=== PATIENT | male | born 1970 | race Hispanic/Latino ===

== ENCOUNTER 2018-01-15 11:21 | Emergency (ER) | payer OTHER ==
[2018-01-15 12:33] LABS: Basophils % (Auto) 0.3 % (0.0-1.8); Eosinophils # (Auto) 0.2 K/mm3 (0.0-0.4); Eosinophils % (Auto) 3.7 % (0.0-4.3); Hematocrit 43.3 % (35.5-45.6); Hemoglobin 14.3 gm/dl (11.8-15.2); Lymphocytes # (Auto) 1.6 K/mm3 (1.2-5.4); Lymphocytes % (Auto) 24.7 % (13.4-35.0); Mean Corpuscular HGB Conc 33 % (32-34); Mean Corpuscular Hemoglobin 26 pg (28-32); Mean Corpuscular Volume 80 fl (84-94); Monocytes # (Auto) 0.4 K/mm3 (0.0-0.8); Monocytes % (Auto) 5.9 % (0.0-7.3); Platelet Count 260 K/mm3 (140-440); Red Cell Distribution Width 14.1 % (13.2-15.2)
[2018-01-15 12:45] LABS: BUN/Creatinine Ratio 14; Blood Urea Nitrogen 11 mg/dL (9-20); Calcium 8.8 mg/dL (8.4-10.2); Hemolysis Index 14
--- NOTE | 2018-01-15 13:56 | Emergency Department Report ---
ED General Adult HPI - General Chief complaint: Recheck/Abnormal Lab/Rx Stated complaint: ABDORMAL EKG Time Seen by Provider: 01/15/18 13:56 Source: patient Mode of arrival: Ambulatory Limitations: No Limitations - History of Present Illness Initial comments: Patient was told to go to the ED by his primary doctor for an evaluation of "abnormal EKG". Complaint: Left Upper extremity numbness on and off. -: Gradual Location: left, upper extremity Radiation: non-radiation Severity scale (0 -10): 2 Quality: other (numb) Consistency: intermittent Improves with: none Worsens with: none Associated Symptoms: denies other symptoms Treatments Prior to Arrival: none - Related Data Allergies Allergy/AdvReac Type Severity Reaction Status Date / Time No Known Allergies Allergy Unverified 01/15/18 11:40 ED Review of Systems ROS: Stated complaint: ABDORMAL EKG Other details as noted in HPI Comment: All other systems reviewed and negative Constitutional: denies: chills, fever Eyes: denies: eye pain ENT: denies: ear pain Respiratory: denies: cough, shortness of breath Cardiovascular: denies: chest pain, palpitations, dyspnea on exertion, edema, syncope Endocrine: no symptoms reported Gastrointestinal: denies: abdominal pain, nausea, vomiting, diarrhea Genitourinary: denies: urgency, dysuria, frequency Musculoskeletal: denies: back pain, joint swelling Skin: denies: rash, change in color Neurological: numbness (LUE). denies: headache, weakness Psychiatric: denies: anxiety, depression Hematological/Lymphatic: denies: easy bleeding, easy bruising ED Past Medical Hx - Past Medical History Previous Medical History?: No - Surgical History Past Surgical History?: No - Social History Smoking Status: Former Smoker Substance Use Type: Alcohol ED Physical Exam - General Limitations: No Limitations General appearance: alert, in no apparent distress - Head Head exam: Present: atraumatic, normocephalic, normal inspection - Eye Eye exam: Present: normal appearance, PERRL, EOMI Pupils: Present: normal accommodation - ENT ENT exam: Present: normal exam, normal orophraynx, mucous membranes dry - Neck Neck exam: Present: normal inspection, full ROM. Absent: tenderness - Respiratory Respiratory exam: Present: normal lung sounds bilaterally. Absent: respiratory distress, wheezes, rales, rhonchi - Cardiovascular Cardiovascular Exam: Present: regular rate, normal rhythm, normal heart sounds - GI/Abdominal GI/Abdominal exam: Present: soft, distended, normal bowel sounds. Absent: tenderness, guarding, rebound, rigid - Extremities Exam Extremities exam: Present: normal inspection, full ROM, normal capillary refill - Back Exam Back exam: Present: normal inspection, full ROM. Absent: tenderness - Neurological Exam Neurological exam: Present: alert, oriented X3, CN II-XII intact - Psychiatric Psychiatric exam: Present: normal affect, normal mood - Skin Skin exam: Present: warm, dry, intact, normal color ED Course Vital Signs 01/15/18 11:41 Temperature 97.9 F Pulse Rate 70 Respiratory 18 Rate Blood Pressure 132/89 O2 Sat by Pulse 99 Oximetry - Reevaluation(s) Reevaluation #1: 01/15/18 15:49 I consulted the [employer] supervisor functional testing Dr Clementine Shaw. He came to the ED and evaluated patient and read the EKG. He recommend discharging patient home to follow up at his clinic for an out patient stress test. ED Medical Decision Making - Lab Data Result diagrams: 01/15/18 12:04 01/15/18 12:04 - EKG Data -: EKG Interpreted by Sd EKG shows normal: sinus rhythm Rate: normal (71) - EKG Data When compared to previous EKG there are: previous EKG unavailable Interpretation: other (No STEMI. EKG was read as normal by Dr Shaw the [employer] supervisor functional testing.) - Radiology Data Radiology results: report reviewed - Medical Decision Making Left Upper Extremity Numbness. Critical care attestation.: If time is entered above; I have spent that time in minutes in the direct care of this critically ill patient, excluding procedure time. ED Disposition Clinical Impression: Left upper extremity numbness Disposition: DC-01 TO HOME OR SELFCARE Is pt being admited?: No Does the pt Need Aspirin: No Condition: Stable Instructions: Paresthesia (ED) Additional Instructions: Please follow up with the [employer] Dr Clementine Shaw for an out patient stress test. Return to the ED if your condition worsens. Referrals: KEYONA RUBIN MD [Primary Care Provider] - 3-5 Days JUANI SHAW MD [Staff Physician] - 3-5 Days Time of Disposition: 16:01
[2018-01-15 14:39] LABS: INR 0.89 (0.87-1.13); Partial Thromboplastin Time 29.6 Sec. (24.2-36.6)
--- NOTE | 2018-01-15 15:29 | Consultation ---
History of Present Illness Consult date: 01/15/18 Consult reason: chest pain History of present illness: The patient is a 47-year-old man referred to cardiology for further evaluation of abnormal EKG. The patient is otherwise healthy, no medical history, no prior cardiac history. Today, he went to his primary care doctor for the first time, ostensibly for a routine visit to establish routine care. During review of systems, he states that he mentioned that he occasionally gets numbness in the left hand which he attributed to the fact that he is constantly typing on the computer. He states that his PCP immediately begun EKG, and based on that referred him to go immediately to the emergency room. The patient denies chest pain, no shortness of breath, no palpitations, no edema. He otherwise looks and feels well. His ECG was repeated in the emergency room a cardiac consultation was requested. I reviewed the ECG from the emergency room and the earlier ECG from the PCPs office. Both ECGs show a normal sinus rhythm, normal ECG with no significant ST abnormalities. On the earlier ECG from the PCP office, there is some baseline artifact, but otherwise normal. Past History Past Medical History: No medical history Medications and Allergies Allergies Allergy/AdvReac Type Severity Reaction Status Date / Time No Known Allergies Allergy Unverified 01/15/18 11:40 Review of Systems Cardiovascular: no chest pain, no orthopnea, no palpitations, no rapid/ irregular heart beat, no edema, no syncope, no lightheadedness, no shortness of breath Physical Examination Vital Signs Temp Pulse Resp BP Pulse Ox 97.9 F 70 18 132/89 99 01/15/18 11:41 01/15/18 11:41 01/15/18 11:41 01/15/18 11:41 01/15/18 11:41 General appearance: no acute distress HEENT: Positive: PERRL Neck: Positive: neck supple Lungs: Positive: Normal Exam Neuro: Positive: Grossly Intact Abdomen: Positive: Soft Male genitourinary: Positive: deferred Skin: Positive: Clear Extremities: Absent: edema Results 01/15/18 12:04 01/15/18 12:04 Coagulation 01/15/18 Range/Units 14:13 PT 12.5 (12.2-14.9) Sec. INR 0.89 (0.87-1.13) APTT 29.6 (24.2-36.6) Sec. CBC 01/15/18 Range/Units 12:04 WBC 6.5 (4.5-11.0) K/mm3 RBC 5.40 H (3.65-5.03) M/mm3 Hgb 14.3 (11.8-15.2) gm/dl Hct 43.3 (35.5-45.6) % Plt Count 260 (140-440) K/mm3 Lymph # 1.6 (1.2-5.4) K/mm3 [place] # 0.4 (0.0-0.8) K/mm3 Eos # 0.2 (0.0-0.4) K/mm3 Baso # 0.0 (0.0-0.1) K/mm3 Comprehensive Metabolic Panel 01/15/18 Range/Units 12:04 Sodium 137 (137-145) mmol/L Potassium 4.3 (3.6-5.0) mmol/L Chloride 100.4 (98-107) mmol/L Carbon Dioxide 25 (22-30) mmol/L BUN 11 (9-20) mg/dL Creatinine 0.8 (0.8-1.5) mg/dL Glucose 92 (75-100) mg/dL Calcium 8.8 (8.4-10.2) mg/dL EKG interpretations - Telemetry EKG Rhythm: Sinus Rhythm Assessment and Plan - Patient Problems (1) Abnormal ECG Current Visit: Yes Status: Acute Plan to address problem: Patient has no cardiac symptoms, essentially asymptomatic, looks and feels well , serial ECGs are normal. There is no indication for any further cardiac workup or hospital admission at this time. Patient is stable for cardiac discharge from the emergency room.
[2018-01-15 16:29] VITALS: BP 108/74
== END 2018-01-15 16:29 | disposition home or self-care (01) ==
LOC: ED 11:21
DX: R20.0 Anesthesia of skin (principal); R94.31 Abnormal electrocardiogram [ECG] [EKG]
CPT/HCPCS: 36415; 80048; 84484; 85025; 85610; 85730; 93005; 93010